=== PATIENT | female | born 1960 | race Caucasian/White ===

== ENCOUNTER 2017-05-22 07:15 | Inpatient (IN) | payer OTHER, MEDICAID ==
[2017-08-27] MEDS ORDERED: MIDAZOLAM 2 MG/2 ML VIAL IVP ONE (12:45)
--- NOTE | 2017-08-27 12:49 | PDANEPAE ---
ANE Past Medical History - Cardiovascular History Hx Hypertension: Yes Hx Arrhythmias: Yes Hx Chest Pain: No Hx Coronary Artery / Peripheral Vascular Disease: No Hx CHF / Valvular Disease: No Cardiovascular History Comment: PVC's. RBBB - Pulmonary History Hx COPD: No Hx Asthma/Reactive Airway Disease: Yes Hx Recent Upper Respiratory Infection: Yes Hx Oxygen in Use at Home: Yes Hx Sleep Apnea: Yes Sleep Apnea Screening Result - Last Documented: Positive Pulmonary History Comment: 2L TO CPAP AT NIGHT. SLEEP APNEA W/CPAP - Neurologic History Hx Cerebrovascular Accident: No Hx Seizures: No Hx Dementia: No - Endocrine History Hx Diabetes: Yes Hypothyroid: No Hyperthyroid: No Obesity: severe Endocrine History Comment: INSULIN & METFORMIN,ACTOS - Renal History Hx Renal Disorders: No - Liver History Hx Hepatic Disorders: No - Neurological & Psychiatric Hx Hx Neurological and Psychiatric Disorders: No Neurological / Psychiatric History Comment: ANXIETY, DEPRESSION, ESSENTIAL TREMOR, Bipolar - Cancer History Hx Cancer: No - Congenital Disorder History Hx Congenital Disorders: No - GI History GERD: no Hx Gastrointestinal Disorders: Yes Gastrointestinal History Comment: GASTRIC BYPASS, - Other Health History Other Health History: HYPERPARATHYROID. ECZEMA R FOOT/TOE. HEAT RASH GROIN, FOLDS UNDER BREASTS RECURRENT. BILAT MISSING TEETH UPPER. GOUT - Chronic Pain History Chronic Pain: Yes (BACK PAIN) - Surgical History Prior Surgeries: eye surg r. gastric bypass 2011. meningioma resection. hysterectomy. lumbar perineal shunt. femur repair ANE Review of Systems Review of Systems: - Exercise capacity METS (RN): 3 METS ANE Patient History - Allergies Allergies/Adverse Reactions: codeine Allergy (Verified 08/19/17 14:11) Rash hydrocodone Allergy (Verified 08/19/17 14:11) Rash - Home Medications Home Medications: Allopurinol [Allopurinol 300 MG (RX)] 300 mg PO DAILY 04/28/17 [Last Taken 08/27 05:00] Atorvastatin Calcium [Lipitor 20 mg (*)] 20 mg PO HS 04/28/17 [Last Taken 20:00] Carvedilol [Coreg (*)] 6.25 mg PO BIDMEAL 04/28/17 [Last Taken 08/27/17 05:00] Cyanocobalamin [Vitamin B12 1000MCG/ML (*)] 1,000 mcg IM Q30D 04/28/17 [Last Taken 08/17/17 10:00] FLUoxetine [Prozac 20 MG (*)] 60 mg PO DAILY 04/28/17 [Last Taken 08/27/17 05:00 ] Insulin Glargine [Lantus 100 UNITS/ML (*)] 52 unit SC BID 04/28/17 [Last Taken 08/26/17 20:00] Multivitamins [Multivitamin (*)] 1 each PO DAILY 04/28/17 [Last Taken 08/26/17 07:30] lamoTRIgine [LamICTAL 100 MG (*)] 200 mg PO DAILY 04/28/17 [Last Taken 08/27/17 05:00] metFORMIN HCL [Glucophage 1000 mg] 1,000 mg PO BIDMEAL 04/28/17 [Last Taken 07/04 05:00] risperiDONE [Risperdal 1mg (*)] 2 mg PO HS 04/28/17 [Last Taken 08/26/17 20:00] traZODone [traZODONE 100MG (*)] 200 mg PO HS 04/28/17 [Last Taken 08/26/17 20:00 ] Cholecalciferol Vit D3 [Vitamin D3 2000 units tab (OTC)] 5,000 units PO DAILY [Last Taken 08/26/17 07:30] Herbals/Supplements -Info Only 1 ea PO DAILY 08/20/17 [Last Taken 08/26/17 07:30 ] Pioglitazone HCl [Actos 15mg (*)] 15 mg PO DAILY 08/20/17 [Last Taken 08/26/17 07:30] Primidone [Primidone 250mg (*)] 250 mg PO DAILY 08/20/17 [Last Taken 08/27/17 05 :00] - Anes Hx Anes Hx: no prior problems - Smoking Hx Smoking Status: Former smoker - Alcohol Use Alcohol Use: Rarely - Family Anes Hx Family Anes Hx: neg - N/A Family Hx Anesthesia Complications: none ANE Labs/Vital Signs - Vital Signs Height: 157.48 cm Weight: 123.377 kg ANE Physical Exam - Airway Mallampati Score: Class 3 Mouth exam: poor dentition - Pulmonary Pulmonary: no respiratory distress, no rales or rhonchi, reduced air movement - Cardiovascular Cardiovascular: regular rate and rhythym, no murmur, rub, or gallop - ASA Status ASA Status: III ANE Anesthesia Plan Anesthesia Plan: GA w LMA Total IV Anesthesia: No
[2017-08-27] MEDS ORDERED: PROPOFOL 200 MG/20 ML VIAL ONE (13:02)
[2017-08-27] MEDS ORDERED: ALBUTEROL 3 ML DEYVIAL IH PRN (14:29)
[2017-08-27] MEDS ORDERED: LR 500 ML IV PRN (14:29)
[2017-08-27] MEDS ORDERED: ONDANSETRON 4 MG/2 ML VIAL IVP PRN (14:29)
[2017-08-27] MEDS ORDERED: NALOXONE HCL 0.4 MG/ML INJ IVP PRN (14:29)
[2017-08-27] MEDS ORDERED: ACETAMINOPHEN 500 MG TAB PO PRN (14:29)
--- NOTE | 2017-08-27 14:29 | POSTANESTH ---
Post Anesthetic Evaluation Cardiovascular Status: Normal, Stable Respiratory Status: Normal, Stable Level of Consciousness/Mental Status: Can Participate in Eval Pain Control: Adequate, Prn Tx Ordered Nausea/Vomiting Control: Adequate, Prn Tx Ordered Complications Possibly Related to Anesthesia: None Noted
[2017-09-04] MEDS ORDERED: CEFUROXIME 1,500 MG in NS 50 ML IV ONE (06:00)
[2017-09-04] MEDS ORDERED: LIDOCAINE 1% 2 ML INJ ID PRN (06:06)
[2017-09-04] MEDS ORDERED: LR 1,000 ML IV ONE (06:06)
[2017-09-04] MEDS ORDERED: BUPIVACAINE 0.25% 30 ML SDV ONE (06:45)
[2017-09-04] MEDS ORDERED: THROMBIN (BOVINE) 20,000 UNIT VIAL TP ONE (06:47)
[2017-09-04] MEDS ORDERED: GENTAMICIN SULFATE 80 MG/2 ML VIAL ONE (06:47)
--- NOTE | 2017-09-04 06:58 | PDHPUP ---
History & Physical Update H&P update statement: This history and physical update is based on an assessment of the patient which was completed after admission or registration (within 24 hours), but prior to the surgery/procedure. H&P update: H&P reviewed & patient examined, no change in patient's condition since H&P completed
[2017-09-04] MEDS ORDERED: fentaNYL 100 MCG/2 ML INJ ONE (07:02)
[2017-09-04] MEDS ORDERED: PROPOFOL/EMULSION 500 MG/50 ML BOTTLE IV ONE (07:03)
[2017-09-04] MEDS ORDERED: DEXMEDETOMIDINE/NS 4MCG/ML 50 ML BTL IV ONE (07:03)
[2017-09-04] MEDS ORDERED: CHLORHEXIDINE GLUC HIBICLENS 118 ML BTL TP ONE (07:45)
--- NOTE | 2017-09-04 08:38 | PDANEPAE ---
ANE History of Present Illness 57 year old woman for cranial deep brain stimulation. History of sleep apnea, obesity, htn, DM, tremor. ANE Past Medical History - Cardiovascular History Hx Hypertension: Yes Hx Arrhythmias: Yes Hx Chest Pain: No Hx Coronary Artery / Peripheral Vascular Disease: No Hx CHF / Valvular Disease: No Cardiovascular History Comment: PVC's. RBBB - Pulmonary History Hx COPD: No Hx Asthma/Reactive Airway Disease: Yes Hx Recent Upper Respiratory Infection: Yes Hx Oxygen in Use at Home: Yes Hx Sleep Apnea: Yes Sleep Apnea Screening Result - Last Documented: Positive Pulmonary History Comment: 2L TO CPAP AT NIGHT. SLEEP APNEA W/CPAP - Neurologic History Hx Cerebrovascular Accident: No Hx Seizures: No Hx Dementia: No - Endocrine History Hx Diabetes: Yes Hypothyroid: No Hyperthyroid: No Obesity: severe Endocrine History Comment: INSULIN & METFORMIN,ACTOS - Renal History Hx Renal Disorders: No - Liver History Hx Hepatic Disorders: No - Neurological & Psychiatric Hx Hx Neurological and Psychiatric Disorders: No Neurological / Psychiatric History Comment: ANXIETY, DEPRESSION, ESSENTIAL TREMOR, Bipolar - Cancer History Hx Cancer: No - Congenital Disorder History Hx Congenital Disorders: No - GI History GERD: no Hx Gastrointestinal Disorders: Yes Gastrointestinal History Comment: GASTRIC BYPASS, - Other Health History Other Health History: HYPERPARATHYROID. ECZEMA R FOOT/TOE. HEAT RASH GROIN, FOLDS UNDER BREASTS RECURRENT. BILAT MISSING TEETH UPPER. GOUT - Chronic Pain History Chronic Pain: Yes (BACK PAIN) - Surgical History Prior Surgeries: eye surg r. gastric bypass 2011. meningioma resection. hysterectomy. lumbar perineal shunt. femur repair ANE Review of Systems Review of Systems: - Exercise capacity METS (RN): 3 METS ANE Patient History - Allergies Allergies/Adverse Reactions: codeine Allergy (Verified 08/19/17 14:11) Rash hydrocodone Allergy (Verified 08/19/17 14:11) Rash - Home Medications Home Medications: Allopurinol [Allopurinol 300 MG (RX)] 300 mg PO DAILY 04/28/17 [Last Taken 09/03] Atorvastatin Calcium [Lipitor 20 mg (*)] 20 mg PO HS 04/28/17 [Last Taken ] Carvedilol [Coreg (*)] 6.25 mg PO BIDMEAL 04/28/17 [Last Taken 09/03/17] Cyanocobalamin [Vitamin B12 1000MCG/ML (*)] 1,000 mcg IM Q30D 04/28/17 [Last Taken 08/17/17 10:00] FLUoxetine [Prozac 20 MG (*)] 60 mg PO DAILY 04/28/17 [Last Taken 09/03/17] Insulin Glargine [Lantus 100 UNITS/ML (*)] 52 unit SC BID 04/28/17 [Last Taken 09/03/17 1/2 dose] Multivitamins [Multivitamin (*)] 1 each PO DAILY 04/28/17 [Last Taken 08/28/17] lamoTRIgine [LamICTAL 100 MG (*)] 200 mg PO DAILY 04/28/17 [Last Taken 09/03/17] metFORMIN HCL [Glucophage 1000 mg] 1,000 mg PO BIDMEAL 04/28/17 [Last Taken ] risperiDONE [Risperdal 1mg (*)] 2 mg PO HS 04/28/17 [Last Taken 09/03/17] traZODone [traZODONE 100MG (*)] 200 mg PO HS 04/28/17 [Last Taken 09/03/17] Cholecalciferol Vit D3 [Vitamin D3 2000 units tab (OTC)] 5,000 units PO DAILY [Last Taken 08/28/17] Herbals/Supplements -Info Only 1 ea PO DAILY 08/20/17 [Last Taken 08/28/17] Pioglitazone HCl [Actos 15mg (*)] 15 mg PO DAILY 08/20/17 [Last Taken 09/03/17] Primidone [Primidone 250mg (*)] 250 mg PO DAILY 08/20/17 [Last Taken 08/31/17] - NPO status NPO Since - Liquids (Date): 09/03/17 NPO Since - Liquids (Time): 02:00 NPO Since - Solids (Date): 09/03/17 NPO Since - Solids (Time): 20:00 - Smoking Hx Smoking Status: Former smoker - Alcohol Use Alcohol Use: Rarely - Family Anes Hx Family Hx Anesthesia Complications: none ANE Labs/Vital Signs - Vital Signs Blood Pressure: 168/93 Heart Rate: 80 Respiratory Rate: 16 O2 Sat (%): 91 Height: 157.48 cm Weight: 123.377 kg ANE Physical Exam - Airway Neck exam: FROM Mallampati Score: Class 3 Mouth exam: normal dental/mouth exam - Pulmonary Pulmonary: no respiratory distress - Cardiovascular Cardiovascular: regular rate and rhythym - ASA Status ASA Status: III ANE Anesthesia Plan Anesthesia Plan: MAC Lines/Monitors: arterial line Total IV Anesthesia: Yes
[2017-09-04] MEDS ORDERED: fentaNYL 100 MCG/2 ML INJ IVP PRN (08:41)
[2017-09-04] MEDS ORDERED: ALBUTEROL 3 ML DEYVIAL IH PRN (08:41)
[2017-09-04] MEDS ORDERED: LABETALOL HCL 5 MG/ML 20 ML MDV IVP PRN (08:41)
[2017-09-04] MEDS ORDERED: ONDANSETRON 4 MG/2 ML VIAL IVP PRN ×2 (08:41→11:13)
[2017-09-04] MEDS ORDERED: NS 500 ML IV PRN (08:41)
[2017-09-04] MEDS ORDERED: ACETAMINOPHEN 500 MG TAB PO PRN (08:41)
[2017-09-04] MEDS ORDERED: NALOXONE HCL 0.4 MG/ML INJ IVP PRN (08:41)
[2017-09-04] MEDS ORDERED: POLYETHYLENE GLYCOL 3350 17 GM PKT PO PRN (11:13)
[2017-09-04] MEDS ORDERED: LACTULOSE 20 GM/30 ML UDCUP PO PRN (11:13)
[2017-09-04] MEDS ORDERED: MAGNESIUM HYDROXIDE 30 ML UDCUP PO PRN (11:13)
[2017-09-04] MEDS ORDERED: BISACODYL 10 MG SUPP PR PRN (11:13)
[2017-09-04] MEDS ORDERED: NS W/ 20 KCl/L 1,000 ML IV SCH (11:15)
[2017-09-04] MEDS ORDERED: traMADol 50 MG TAB PO PRN (11:15)
--- NOTE | 2017-09-04 11:18 | POSTOPPROG ---
Post Op Note Date of Operation: 09/04/17 Surgeon: Elli Vogt Sash Installer: Francisca Palacios PA-C Anesthesiologist: Dr. Clark Anesthesia: IV Sedation Pre-op Diagnosis: Essential tremor Post-op Diagnosis: Essential tremor Procedure: Left VIM DBS lead placement Inf/Abcess present in the surg proc area at time of surgery?: No Depth: Superfical (Skin SQ) EBL: Minimal Plan Plan: 57 yo female s/p left VIM DBS lead placement for essential tremor - neuro checks - pain control - advance diet as tolerated - postop head CT pending - maintain SBP < 140 - dispo: home tomorrow Exam Awake. Alert. PERRL Facial expression symmetrical Moving all ext Strength full Incision c/d/i
--- NOTE | 2017-09-04 11:26 | GOP ---
[f rep st] OPERATIVE REPORT DATE OF OPERATION: 09/04/2017 SURGEON: Elli Vogt DO HEAD [employer] COACH: None. ANNE-MARIE will be dictated by Marcella Gambino PA-C. Please refer to her dictation for the ANNE-MARIE. PREOPERATIVE DIAGNOSIS: 1. Essential tremor. 2. Diabetes. 3. Obesity. POSTOPERATIVE DIAGNOSIS: 1. Essential tremor. 2. Diabetes. 3. Obesity. PROCEDURE PERFORMED: 1. Left deep brain stimulator lead placement to the VIM nucleus of the thalamus. 2. Stealth. 3. Impedances. FINDINGS: SPECIMENS: None. ESTIMATED BLOOD LOSS: 20 mL. INDICATIONS: This is a 57-year-old female with essential tremor who was found to be a good candidate by a multidisciplinary team evaluation to be a candidate for DBS. She was identified, consented, sit es were marked, brought to the operating room, anesthetized with MAC, hair was clipped with the OR cl ippers, the skin was cleansed with ChloraPrep, pin sites were anesthetized with 0.5% Marcaine with ep inephrine using povidone and iodine. The [place] frame was placed a stereotactic fashion and a local izer CT was performed with the O-arm and the localizing box. It was to the plan in the Stealt h frame linked S8 software. Her ACPC distance was 26.4, her target was an X of -11.73, a Y of -6.74, a Z of -0.19. Her entry point was an X of -41.61, A Y of 37.69, a Z of 68.59. This corresponded to 2 3.5 degrees off midsagittal, 57.1 degrees off midaxial. This corresponded to Le[place]ell frame coordinate s of X of 108.5, Y of 102, Z of 111, ring of 69 degrees, arc 111.7 degrees. She was prepped and drap ed in the usual sterile fashion. These were all set and triple checked by all providers in the room. Incision was marked using the cannula and the frame coordinates and half-elmore incision was anesthet ized with 0.5% Marcaine with epinephrine. An incision was made with a 10 blade. Hemostasis was obta ined with bipolar cautery. We used a periosteal elevator to elevate the periosteum and Adriana clips we re placed. The bone incision was marked and a air force pilot hole was performed. 14 mm [place] bur hole was pe rformed and the bone edges were waxed. We verified it was in appropriate position, placed the [place] [place] clipping mechanism and device locked into place with 5 mm Synthes screws. Verified the clip ping mechanism clipped and locked. Opened the dura sharply with an 11 blade. Coagulated the dura. Maria rich the cannula and stylet. Placed Gelfoam and DuraSeal. Placed the microelectrode. Performed microe lectrode recording. Had an excellent run. Did not find any light touch. Found deep touch and had a pproximately 9 mm macro stim to the middle and had some paresthesias with low voltages so elected to try an anterior run. We drove back up to target, removed the Gel-Foam and DuraSeal, placed and the c annula and stylet, placed a microelectrode and then performed an anterior run. We did not get good t halamic recordings in this area and elected to place and test the lead at the center tract as there w ere no other movement options position mesa. We elected to leave the bottom of the bottom contact at 1.5 below where we got out of the thalamus again. Please refer to the ANNE-MARIE dictation by Francisca young. We measured and placed the lead, placing the internal stylet in the anterior cannula. We then t ested each contact for impedances and for efficacy. She had a significant lesional effect so we were unable to test her tremor, however, from a [id number] profile, it was a very programmable lead. To ok an x-ray with the bomb sites, retracted the cannulas, placed the locking mechanism, clipped and lo cked the mechanism, brought the stylet out, performed a stereotactic spin which was merged in the Piter alth frame linked software. The lead was then placed into the groove, locked into place with the cap . An x-ray was taken after placing the lead extension, locking into place with the torque wrench and placing lead posterior. There had been no significant migration. Copiously irrigated with over a liter of gentamicin infused saline. Closed the galea with 2-0 Vicryl pop-offs. The skin was closed with 3-0 running nylon. The wound was dressed with Xeroform and Telfa stapled down. The fram e was removed and then a head wrap was placed. Patient tolerated the procedure well. No complication s. This DESCRIPTION OF PROCEDURE: FLUIDS: 1200 mL of crystalloid. Urine. OUTPUT: See anesthesia record. DRAINS: None. COMPLICATIONS: None. /[id number]/MODL
[2017-09-04] MEDS ORDERED: LABETALOL HCL 5 MG/ML 20 ML MDV ONE (12:29)
[2017-09-04] MEDS: metFORMIN HCL 500 MG TAB PO SCH ×2 (14:53→20:23)
[2017-09-04] MEDS: CEFUROXIME 1,500 MG in STERILE WATER INJ 17 ML IV SCH ×2 (14:53→22:00)
[2017-09-04] MEDS: hydrALAZINE 20 MG/ML VIAL IVP PRN (16:36)
--- NOTE | 2017-09-04 19:52 | GPN ---
[f rep st] PROCEDURE NOTE DATE OF PROCEDURE: 09/04/2017 PREPROCEDURE DIAGNOSIS: Essential tremor. POSTPROCEDURE DIAGNOSIS: Essential tremor. PROCEDURE PERFORMED: Intraoperative functional subcortical mapping by microelectrode recording and s timulation. COMPLICATIONS: None. INDICATIONS FOR PROCEDURE: Determination of optimal electrode lead placement for deep brain stimulat ion therapy for essential tremor to the VIM. DESCRIPTION OF PROCEDURE: Following the incision on the left, a lisa hole was drilled. The arc was then arranged with the following coordinates: X 108.5, Y 102, V 111, ring 69 and arc 111.7. The rec ording microelectrode was then slowly advanced into the brain using a central tract. Cell bursts wer e found above target at 11. There was evidence of entering VIM at 7.5 above target as well as change in stimulation with elbow extension at 7.5 and shoulder passive range of motion at 6.7 above target. There was evidence of deep touch in the leg at 4.5 above target and deep touch to the arm at 3.78 a taurus target. There was a tremor cell noted at 3.1 above target. We exited VIM at 1.5 below target. With these recordings, we then proceeded with macro stimulation. Patient had transient hand tingling up to 2.0 with constant at 2.5. Due to the tingling that patient had with stimulation with macro st imulation, we proceeded with an anterior tract with microelectrode recording. There were cell bursts at various points above target. However, there was no evidence of entering VIM and any change in st imulation with passive range of motion or deep touch. We therefore elected to place the lead at the central tract with the bottom of the lead at 1.5 below target. We proceeded with test stimulation. At 1 negative 4 positive impedance 1993 the patient had transien t tingling up to 1.75 current with improvement in her tremor. At 2 negative 4 positive impedance 174 3 the patient had transient tingling up to 2.0 with improvement in tremor. At 2A negative 4 positive and impedance 2741 the patient had transient tingling at 1.75 current. At 3 negative 4 positive imp edance 1544 patient had no side effects up to 2.0 current. At 3 positive 4 negative impedance 1541 p atient had no side effects up to 2.5 current. We elected to leave the lead at this location with the bottom of the lead at 1.5 below target due to the recordings we obtained as well as the test stimula tion. The patient tolerated the surgery well without complication and was transferred to recovery. /[id number]/MODL
[2017-09-04] MEDS: INSULIN GLARGINE 100 UNITS/ML UNIT SC SCH (20:17)
[2017-09-04] MEDS: SENNOSIDES/DOCUSATE SODIUM TAB PO SCH (20:19)
[2017-09-04] MEDS: ACETAMINOPHEN 325 MG TAB PO PRN (20:20)
[2017-09-04] MEDS: CARVEDILOL 6.25 MG TAB PO SCH (20:20)
[2017-09-04] MEDS ORDERED: traZODone 100 MG TAB PO SCH (21:00)
[2017-09-04] MEDS ORDERED: risperiDONE 1 MG TAB PO SCH (21:00)
[2017-09-04] MEDS ORDERED: ATORVASTATIN CALCIUM 20 MG TAB PO SCH (21:00)
[2017-09-05 04:36] VITALS: O2SAT 95
[2017-09-05] MEDS: ACETAMINOPHEN 325 MG TAB PO PRN (04:37)
[2017-09-05] MEDS: hydrALAZINE 20 MG/ML VIAL IVP PRN (04:37)
[2017-09-05 07:17] VITALS: PULSE 83; RESP 16; TEMP 97.8
[2017-09-05 07:25] VITALS: BP 135/70
[2017-09-05] MEDS: CARVEDILOL 6.25 MG TAB PO SCH (07:56)
[2017-09-05] MEDS: metFORMIN HCL 500 MG TAB PO SCH (07:56)
[2017-09-05] MEDS ORDERED: ALLOPURINOL 300 MG TAB PO SCH (09:00)
[2017-09-05] MEDS ORDERED: lamoTRIgine 100 MG TAB PO SCH (09:00)
[2017-09-05] MEDS ORDERED: MULTIVITAMINS 1 EACH TAB PO SCH (09:00)
[2017-09-05] MEDS ORDERED: PRIMIDONE 250 MG TAB PO SCH (09:00)
[2017-09-05] MEDS ORDERED: FLUoxetine 20 MG CAP PO SCH (09:00)
[2017-09-05] MEDS ORDERED: PIOGLITAZONE HCL 15 MG TAB PO SCH (09:00)
[2017-09-05] MEDS: INSULIN GLARGINE 100 UNITS/ML UNIT SC SCH (09:20)
--- NOTE | 2017-09-05 10:52 | NEUSURGPN ---
Assessment/Plan: 7 yo female s/p left VIM DBS lead placement for essential tremor - neuro checks- stable and doing well - pain control -Some nausea but controlled this am - eating well, voiding well -Remove head wrap prior to going home - postop head CT shows placement of leads, otherwise no acute bleeding or other acute changes - maintain SBP < 140-will continue home BP meds - dispo: home today Exam Awake. Alert. PERRL Facial expression symmetrical Moving all ext Strength full Incision c/d/i Subjective: Doing well, had some nausea but is improved now. Eager to go home. - Physician Discussed Patient with : Sin Neurosurgery Physical Exam - Vitals, I&O, Labs I and O 09/04/17 09/05/17 09/06/17 05:59 05:59 05:59 Intake Total 1200 270 Output Total 550 Balance 650 270 Weight 123.377 kg Intake: Oral (ml) 270 IV Intake (ml) 1200 Output: Urine (ml) 550 Catheter 200 Toilet 350 Estimated Blood Loss (ml) 0 Other: Intake Quantity Yes Sufficient Number of Voids Toilet 1 1 Bladder Scan Volume (ml) Toilet 500 Vital Signs Temp Pulse Resp BP Pulse Ox 36.6 C 83 16 135/70 H 95 09/05/17 07:13 09/05/17 07:56 09/05/17 07:13 09/05/17 07:56 09/05/17 07:13 ICD10 Worksheet Patient Problems: Problems Problem Status Onset Essential tremor Acute - ICD10 Problem Qualifiers (1) Essential tremor
[2017-09-05] MEDS: SENNOSIDES/DOCUSATE SODIUM TAB PO SCH (11:00)
--- NOTE | 2017-09-05 11:42 | ASDISCHSUM ---
Discharge Information Plan Status:Home with No Needs Medically Cleared to Leave:09/04/2017 Discharge Date:09/05/2017 11:21 AM CM D/C Disposition:Home, Routine, Self-Care ADT D/C Disposition:Home, Routine, Self-Care Projected Discharge Date:09/05/2017 11:21 AM Transportation at D/C:None or Unknown Discharge Delay Reason: Follow-Up Date:09/05/2017 11:21 AM Discharge Slot:1 - 8:01 am - 12:00 noon Final Diagnosis:Essential Tremor, s/p deep brain stimulation lead placement Placement Information Patient Contact Information Contact Name:BHAVESH Relationship:Sister Address: Work Phone: City: [facility] Phone: [facility] Code: Email: Financial Information Financial Class:HMO and PPO Plans Primary Plan Desc:[employer] Primary Plan Number:[id number] Secondary Plan Desc:[employer] [place] Secondary Plan Number:[id number] Assessment Information [facility] CM Progress Note CM Note CM Note Notes: Pt admitted w/ an essential tremor. Per notes, s/p deep brain stimulation lead placement. Pt is a , she lives alone in [place]; her sister is listed as her Emergency Contact. Pt to discharge home independently w/ no identified needs. No IM/CHONG indicated, not applicable. Pt to follow up as directed. CM avail for any further issues or concerns. Discharge Plan: Home independently Date Signed: 09/05/2017 11:42 AM Electronically Signed By:Martha Benitez RN Intervention Information
== END 2017-09-05 11:21 | disposition home or self-care (01) | DRG 27 ==
LOC: F3N 09-04 05:42
PROVIDERS: ADMIT Neurological Surgery; ATTEND Neurological Surgery
PROC: 00H00MZ Insertion of Neurostimulator Lead into Brain, Open Approach (ICD-10-PCS; principal; 2017-09-04 07:15)
PROC: 00K00ZZ Map Brain, Open Approach (ICD-10-PCS; principal; 2017-09-04 07:15)
DX: G25.0 Essential tremor (principal); I10 Essential (primary) hypertension; E11.9 Type 2 diabetes mellitus without complications; G47.30 Sleep apnea, unspecified; E66.9 Obesity, unspecified; Z79.84 Long term (current) use of oral hypoglycemic drugs; F41.8 Other specified anxiety disorders; E03.9 Hypothyroidism, unspecified; Z98.84 Bariatric surgery status; Z87.891 Personal history of nicotine dependence
CPT/HCPCS: C1713; C1778; J0171; J0360; J0697; J1815; J2405; J2704; J3010; J3490

== ENCOUNTER 2017-08-27 10:53 | Outpatient (CLI) | payer OTHER, MEDICAID ==
[2017-08-27] MEDS ORDERED: ROCURONIUM 100 MG/10 ML VIAL ONE (11:32)
[2017-08-27] MEDS ORDERED: SUCCINYLCHOLINE CHLORIDE 200 MG/10 ML VIAL ONE (11:32)
[2017-08-27] MEDS ORDERED: GADOBUTROL 10 ML VIAL IVP ONE (11:34)
[2017-08-27 12:05] VITALS: PULSE 82
[2017-08-27] MEDS ORDERED: MIDAZOLAM 2 MG/2 ML VIAL ONE (12:53)
[2017-08-27] MEDS ORDERED: fentaNYL 100 MCG/2 ML INJ ONE (13:07)
[2017-08-27 15:02] VITALS: TEMP 97.3
[2017-08-27 15:18] VITALS: RESP 13
[2017-08-27] MEDS ORDERED: LIDOCAINE 2% 2 ML INJ ONE (15:30)
[2017-08-27] MEDS ORDERED: ONDANSETRON 4 MG/2 ML VIAL ONE (15:30)
[2017-08-27 15:44] VITALS: BP 130/80; O2SAT 87
[2017-08-27] MEDS ORDERED: ACETAMINOPHEN 500 MG TAB PO PRN (16:01)
[2017-08-27] MEDS ORDERED: ONDANSETRON 4 MG/2 ML VIAL IVP PRN (16:01)
[2017-08-27] MEDS ORDERED: NALOXONE HCL 0.4 MG/ML INJ IVP PRN (16:01)
[2017-08-27] MEDS ORDERED: LR 500 ML IV PRN (16:01)
[2017-08-27] MEDS ORDERED: PROMETHAZINE HCL 25 MG/ML INJ IVP PRN (16:01)
== END 2017-08-27 15:50 | disposition home or self-care (01) ==
LOC: FIMAGING 10:53
PROVIDERS: ATTEND Physician Assistant Surgical
DX: Z01.812 Encounter for preprocedural laboratory examination (principal); J32.2 Chronic ethmoidal sinusitis; J32.1 Chronic frontal sinusitis; G93.89 Other specified disorders of brain; G25.0 Essential tremor
CPT/HCPCS: A9585; J0330; J2250; J2405; J3010

== ENCOUNTER 2017-10-02 05:32 | Inpatient (IN) | payer OTHER, MEDICAID ==
[2017-10-02] MEDS ORDERED: CEFUROXIME 1,500 MG in STERILE WATER INJ 17 ML IV ONE (06:00)
[2017-10-02] MEDS ORDERED: LR 1,000 ML IV ONE (06:43)
[2017-10-02] MEDS ORDERED: CHLORHEXIDINE GLUC HIBICLENS 118 ML BTL TP ONE (06:46)
[2017-10-02] MEDS ORDERED: POVIDONE-IODINE 30 GM OINTTUBE TP ONE (06:46)
[2017-10-02] MEDS ORDERED: BUPIVACAINE 0.25% 30 ML SDV ONE (06:46)
[2017-10-02] MEDS ORDERED: THROMBIN (BOVINE) 20,000 UNIT VIAL TP ONE (06:46)
[2017-10-02] MEDS ORDERED: GENTAMICIN SULFATE 80 MG/2 ML VIAL ONE (06:47)
[2017-10-02 06:59] LABS: PLATELET COUNT 226 10^3/uL (150-400)
--- NOTE | 2017-10-02 06:59 | PDANEPAE ---
ANE Past Medical History - Cardiovascular History Hx Hypertension: Yes Hx Arrhythmias: Yes Hx Chest Pain: No Hx Coronary Artery / Peripheral Vascular Disease: No Hx CHF / Valvular Disease: No Hx Palpitations: No Cardiovascular History Comment: PVC's. RBBB. high chol - Pulmonary History Hx COPD: No Hx Asthma/Reactive Airway Disease: Yes Hx Recent Upper Respiratory Infection: Yes Hx Oxygen in Use at Home: Yes O2 in Use at Home (L/minute): o2 w/cpap Hx Sleep Apnea: Yes Sleep Apnea Screening Result - Last Documented: Positive Pulmonary History Comment: 2L TO CPAP AT NIGHT. SLEEP APNEA W/CPAP - Neurologic History Hx Cerebrovascular Accident: No Hx Seizures: No Hx Dementia: No Neurologic History Comment: essential tremor - Endocrine History Hx Diabetes: Yes Hypothyroid: No Hyperthyroid: No Obesity: yes, severe Endocrine History Comment: type 2. hyperparathyroid - Renal History Hx Renal Disorders: No - Liver History Hx Hepatic Disorders: No - Neurological & Psychiatric Hx Hx Neurological and Psychiatric Disorders: No Neurological / Psychiatric History Comment: ANXIETY. DEPRESSION. Bipolar - Cancer History Hx Cancer: No - Congenital Disorder History Hx Congenital Disorders: No - GI History GERD: no Hx Gastrointestinal Disorders: Yes Gastrointestinal History Comment: GASTRIC BYPASS - Other Health History Other Health History: wears glasses. ECZEMA R FOOT/TOE. HEAT RASH GROIN, FOLDS UNDER BREASTS RECURRENT. BILAT. MISSING TEETH UPPER. GOUT - Chronic Pain History Chronic Pain: Yes (BACK PAIN) - Surgical History Prior Surgeries: 10/02/17 DBS stg 2 with Vogt. 09/04/17 DBS stg 1 with Vogt. 08/28/17 MRI with anesthesia eye surg r. gastric bypass 2011. meningioma resection. hysterectomy. lumbar perineal shunt. femur repair ANE Review of Systems Review of Systems: - Exercise capacity METS (RN): 2 METS - Systems Neurological: Reports: tremors ANE Patient History - Allergies Allergies/Adverse Reactions: codeine Allergy (Verified 10/02/17 06:20) Rash hydrocodone Allergy (Verified 10/02/17 06:20) Rash - Home Medications Home Medications: Allopurinol [Allopurinol 300 MG (RX)] DAILY 04/28/17 [Last Taken 10/01/17 07:00] Atorvastatin Calcium [Lipitor 20 mg (*)] HS 04/28/17 [Last Taken 10/01/17 20:00] Carvedilol [Coreg (*)] BIDMEAL 04/28/17 [Last Taken 10/01/17 20:00] FLUoxetine [Prozac 20 MG (*)] DAILY 04/28/17 [Last Taken 10/01/17 07:00] Insulin Glargine [Lantus 100 UNITS/ML (*)] 52 unit SC BID 04/28/17 [Last Taken 10/01/17 20:00] Multivitamins [Multivitamin (*)] DAILY 04/28/17 [Last Taken 09/25/17] lamoTRIgine [LamICTAL 100 MG (*)] DAILY 04/28/17 [Last Taken 10/01/17 07:00] metFORMIN HCL [Glucophage 1000 mg] BIDMEAL 04/28/17 [Last Taken 10/01/17 07:00] risperiDONE [Risperdal 1mg (*)] HS 04/28/17 [Last Taken 10/01/17 20:00] Cholecalciferol Vit D3 [Vitamin D3 2000 units tab (OTC)] DAILY 08/20/17 [Last Taken 09/25/17] Herbals/Supplements -Info Only DAILY 08/20/17 [Last Taken 09/25/17] Pioglitazone HCl [Actos 15mg (*)] DAILY 08/20/17 [Last Taken 10/01/17 07:00] Primidone [Primidone 250mg (*)] DAILY 08/20/17 [Last Taken 09/27/17] traZODone [traZODONE 100MG (*)] 200 mg PO HS 10/01/17 [Last Taken 10/01/17 20:00 ] - NPO status NPO Since - Liquids (Date): 10/01/17 NPO Since - Liquids (Time): 23:59 NPO Since - Solids (Date): 10/01/17 NPO Since - Solids (Time): 23:00 - Smoking Hx Smoking Status: Former smoker - Family Anes Hx Family Hx Anesthesia Complications: none ANE Labs/Vital Signs - Labs Result Diagrams: 10/02/17 06:35 10/02/17 06:35 - Vital Signs Blood Pressure: 152/77 Heart Rate: 81 Respiratory Rate: 16 O2 Sat (%): 92 Height: 157.48 cm Weight: 127.006 kg ANE Physical Exam - Airway Neck exam: decreased ROM Mallampati Score: Class 3 Mouth exam: normal dental/mouth exam - Pulmonary Pulmonary: no respiratory distress, reduced air movement - Cardiovascular Cardiovascular: regular rate and rhythym, no murmur, rub, or gallop - ASA Status ASA Status: III ANE Anesthesia Plan Anesthesia Plan: MAC Total IV Anesthesia: Yes
[2017-10-02] MEDS ORDERED: DEXMEDETOMIDINE/NS 4MCG/ML 50 ML BTL IV ONE (07:12)
[2017-10-02] MEDS ORDERED: fentaNYL 100 MCG/2 ML INJ ONE ×2 (07:13→09:03)
[2017-10-02] MEDS ORDERED: PROPOFOL 200 MG/20 ML VIAL ONE ×2 (07:13→09:02)
[2017-10-02] MEDS ORDERED: DEXAMETHASONE 4 MG/ML VIAL ONE (07:14)
[2017-10-02] MEDS ORDERED: ONDANSETRON 4 MG/2 ML VIAL ONE (07:14)
[2017-10-02] MEDS ORDERED: LIDOCAINE 2% 5 ML SDV ONE (07:22)
[2017-10-02] MEDS ORDERED: HYDROCODONE/APAP 5/325 TAB PO PRN (09:00)
[2017-10-02] MEDS ORDERED: ACETAMINOPHEN 500 MG TAB PO PRN (09:00)
[2017-10-02] MEDS ORDERED: NALOXONE HCL 0.4 MG/ML INJ IVP PRN (09:00)
[2017-10-02] MEDS ORDERED: fentaNYL 100 MCG/2 ML INJ IVP PRN (09:00)
[2017-10-02] MEDS ORDERED: ALBUTEROL 3 ML DEYVIAL IH PRN (09:00)
[2017-10-02] MEDS ORDERED: OXYCODONE/APAP 5/325 TAB PO PRN (09:00)
[2017-10-02] MEDS ORDERED: epHEDrine SULFATE 10 MG/ML SYR IVP PRN (09:00)
[2017-10-02] MEDS ORDERED: ONDANSETRON 4 MG/2 ML VIAL IVP PRN ×2 (09:00→10:48)
[2017-10-02] MEDS ORDERED: LR 500 ML IV PRN (09:00)
[2017-10-02] MEDS ORDERED: PHENYLEPHRINE HCL 100 MCG/ML SYR IVP PRN (09:00)
[2017-10-02] MEDS ORDERED: ACETAMINOPHEN 325 MG TAB PO PRN (10:48)
[2017-10-02] MEDS ORDERED: ONDANSETRON DISINTEGRATING 4 MG TAB PO PRN (10:48)
--- NOTE | 2017-10-02 10:53 | POSTOPPROG ---
Post Op Note Date of Operation: 10/02/17 Surgeon: Elli Vogt Furniture Cleaner: Francisca Palacios PA-C Anesthesia: IV Sedation, Local (Specify) Pre-op Diagnosis: Essential tremor Post-op Diagnosis: Essential tremor Procedure: Right DBS lead placement Inf/Abcess present in the surg proc area at time of surgery?: No Depth: Deep Incisional (Fascial) EBL: Minimal Plan Plan: 57 yo female s/p right DBS lead placement for essential tremor - neuro checks - postop head CT pending - maintain SBP < 140 - PT - pain control - dispo: home tomorrow Exam Awake. Alert. PERRL Facial expression symmetrical Muscle strength full at 5/5 Sensation intact
[2017-10-02] MEDS ORDERED: NS 1,000 ML IV SCH (11:00)
--- NOTE | 2017-10-02 11:22 | GOP ---
[f rep st] OPERATIVE REPORT DATE OF OPERATION: 10/02/2017 SURGEON: Elli Vogt DO NEUROSURGEON: Elli Vogt DO. HULL INSPECTOR: None. PREOPERATIVE DIAGNOSIS: Essential tremor. POSTOPERATIVE DIAGNOSIS: Essential tremor. PROCEDURE PERFORMED: 1. Placement of right deep brain stimulator lead to the ventral intermediate nucleus of the thalamus . 2. Stealth stereotaxis. ANNE-MARIE by Francisca Palacios. Please refer to her dictation for all ANNE-MARIE. FINDINGS: SPECIMENS: None. ESTIMATED BLOOD LOSS: 25 mL. INDICATIONS: This is a 57-year-old female, with essential tremor and an indwelling left-sided lead t o the VIM, who comes back for her right-sided lead placement. DESCRIPTION OF PROCEDURE: She was identified, consented. Sites were marked. Brought to the operati ng room, anesthetized under local. Hair was clipped with the OR clippers. Skin was prepped with Chl oraPrep, and the frame sites were anesthetized with 0.5% Marcaine with epinephrine. Using povidone i odine ointment on the tips of the pins, the pins of the [place] frame were placed stereotactically, p reventing all pitch, yaw, and left-right deviation. We then performed a stereotactic spin with the O -arm and the Stealth localizer and merged it to the preoperative plan in the Stealth frame-linked [facility]. The AC-PC distance was 26.11. The target was X of 11.33, a Y of -6.52 and a Z of 0.11. The entry point was an X of 36.82, a Y of 35.60, a Z of 70.37. This corresponded 19.9 degrees off midsag ittal, 59.1 degrees off midaxial. This corresponded to [place] frame coordinates of an X of 86, Y of 92, Z of 118, ring of 74 degrees, arc of 67.9 degrees. We elected to do a center and an anterior tr act, as her anterior tract on the opposite side was the most active and usable tract. She was prepped and draped in the usual sterile fashion. All [place] frame coordinates were set and triple-checked by all providers in the room. The incision site was marked using the [place] frame co ordinates, and a half-elmore incision was anesthetized with 0.5% Marcaine with epinephrine. Incision w as made with a 10 blade. Periosteum was elevated with a periosteal elevator. Hemostasis was obtaine d with Adriana clips and bipolar. We then marked the bone incision using the preoperative Stealth ster eotactic plan, performed a corporate auditor hole, then performed a 14 mm bur hole. All bone edges were waxed, a nd we verified the bur holes in the appropriate position. We placed the locking mechanism for the Ab antonina [facility] system and locked into place with 5 mm Synthes screws. Verified the clipping mechanism clipped and locked. Opened the dura sharply with an 11 blade. Meticulous hemostasis was obtained w ith bipolar cautery. We then gently inserted the cannula and stylet for the center and anterior trac t, locked into place. Placed Gelfoam and DuraSeal, and then removed the internal cannula, placed the microelectrodes, connected them, checked impedances. All impedances were good. We performed microe lectrode recording. The anterior tract was the better tract. Please refer to all microelectrode rec ording dictation by Francisca Palacios. We got in at approximately 9.8 above and out at approximately 1 mm below, with good motor driving and good deep tactile, and we macrostemmed and elected to place the lead in the anterior tract. So, wit h the bottom of the bottom contact at 1 below target, where we got out of the VIM, we drove to this a vianey. We placed internal stylet in the center tract. We removed the microelectrode, measured and lucille rich the lead in the appropriate configuration. This is, again, an [place] [facility] lead. We placed t he lead, tested the lead at all contacts. We had some transient paresthesias at low voltages in the bottom contacts. We backed the lead up approximately 1 mm to have the bottom of the bottom at target . We retested, and we had excellent programability and low side effects at all of the top 3 contacts in bipolar mode, and without any directionality. We elected to leave the lead here. X-ray was take n of the bottom sites. We then performed a Stealth stereotactic spin and merged it. The lead appeared, on the Stealth stere otactic spin, to be approximately 1 mm more medial than the original plan; again, in a good position. We then retracted the cannula, placed the locking clip, verified that it clipped and locked, remove d the lead inferiorly with bayonets from the cannula, removed the stylet, placed it into the groove, placed a cap on, and locked the cap in place. Took an x-ray; it had not migrated. We then placed th e extension cap over the lead and locked into place with the torque wrench. Then placed the extensio n cap posteriorly and coiled the lead posterior and around the incision. Took another x-ray. It had not migrated. Copiously irrigated with over 1 L of gentamicin-infused saline. Closed the galea wit h 2-0 Vicryl pop-offs. Closed the skin with 3-0 running nylon. The incision was dressed with Xerofo rm and Telfa, stapled down. We then removed the frame and placed a head wrap. Patient tolerated pro cedure well. Had good lesional effect. There were no complications. FLUIDS: 1100 mL crystalloid. URINE OUTPUT: 175 mL. DRAINS: None. COMPLICATIONS: None. /[id number]/MODL
[2017-10-02] MEDS ORDERED: hydrALAZINE 20 MG/ML VIAL ONE (12:04)
[2017-10-02] MEDS: hydrALAZINE 20 MG/ML VIAL IVP PRN ×2 (12:06→13:19)
--- NOTE | 2017-10-02 12:52 | GPN ---
[f rep st] PROCEDURE NOTE DATE OF PROCEDURE: 10/02/2017 PREPROCEDURE DIAGNOSIS: Essential tremor. POSTPROCEDURE DIAGNOSIS: Essential tremor. PROCEDURE PERFORMED: Intraoperative functional subcortical mapping by microelectrode recording and s timulation. COMPLICATIONS: None. INDICATIONS FOR PROCEDURE: Determination of optimal electrode lead placement for deep brain stimulat ion therapy for essential tremor to the VIM. DESCRIPTION OF PROCEDURE: Following the incision on the right, a burhole was drilled. The arc was t hen arranged with the following coordinates: X is 86, Y is 92, Z is 118, ring is 74, arc is 67.9. T he recording microelectrode was then slowly advanced into the brain using an anterior and central tra ct. Cell burst was noted in the anterior tract at 12.1 above target. There was evidence of entering VIM at 9.7 above target. There was possibly change in recording with foot range of motion at 9.48 a taurus target. There was evidence of a tremor cell at 9.4 above target, and change in recordings with elbow extension at 8.47 above target. There was evidence of deep touch to the upper arm at 2.53 abov e target, and we exited VIM at 1 below target for the anterior tract. For the central tract, we ente red VIM at 7.47 above target, and exited at target. We decided to proceed with macrostimulation at 4 above target at the anterior tract. Patient had transient tongue and hand tingling up to 2.5. With these recordings, we then proceeded with test stimulation. Pulse was 90, rate 130. At 1 negative, 2 positive, impedance 1344, patient had transient tingling left hand at 0.5, constant at 1.5. At 2 n egative, 3 positive, impedance 1743, patient had tingling in her lip and left hand that was transient starting at 1.25 and constant 2.year-old. At 3 negative, 4 positive, impedance 1992, the patient davila d no side effects up to 2.00. When testing these contacts, the bottom of the lead was at 1 below tar get. We then decided to back the lead up, with the bottom of the lead at target, and retest contacts 3 and 4. At 3 negative, 4 positive, impedance 2143, patient had no side effects up to 2.00 current. At 4 negative, 3 positive, impedance 2143, patient had no side effects up to 2.00 current. The pat iefrancisco did not have a significant amount of tremor in order for us to test, as she had a leavening effe ct. We elected to leave the lead at this location with the bottom of the lead at target, using the a nterior tract due to the recordings we obtained, as well as the test stimulation. The patient tolera luba the surgery well without any complication, was transferred to recovery. /[id number]/MODL
[2017-10-02] MEDS ORDERED: LABETALOL HCL 5 MG/ML 20 ML MDV IVP ONE (14:48)
[2017-10-02] MEDS: niCARdipine/NACL 200 ML IV SCH (17:03)
[2017-10-02] MEDS ORDERED: D50W 25 GM/50 ML SYR IVP PRN (18:25)
[2017-10-02] MEDS: CARVEDILOL 6.25 MG TAB PO SCH (18:37)
[2017-10-02] MEDS ORDERED: INSULIN REGULAR HUMAN 100 UNIT/ML UNIT ONE (18:42)
[2017-10-02] MEDS: INSULIN REGULAR, HUMAN 100 UNIT/1 ML VIAL HIGH SC SCH ×2 (18:45→20:51)
[2017-10-02] MEDS: traMADol 50 MG TAB PO PRN (20:26)
[2017-10-02] MEDS: traZODone 100 MG TAB PO SCH (20:27)
[2017-10-02] MEDS: ATORVASTATIN CALCIUM 20 MG TAB PO SCH (20:27)
[2017-10-02] MEDS: risperiDONE 1 MG TAB PO SCH (20:27)
[2017-10-02] MEDS: INSULIN GLARGINE 100 UNITS/ML UNIT SC SCH (21:18)
[2017-10-03] MEDS: traMADol 50 MG TAB PO PRN ×2 (01:03→05:27)
[2017-10-03] MEDS ORDERED: NON-FORMULARY NEW DRUG (Metformin Hcl [Glucophage 1000 Mg] 1,000 MG) PO SCH (08:00)
[2017-10-03] MEDS: INSULIN REGULAR, HUMAN 100 UNIT/1 ML VIAL HIGH SC SCH ×4 (08:18→20:11)
[2017-10-03] MEDS: FLUoxetine 20 MG CAP PO SCH (08:19)
[2017-10-03] MEDS: niCARdipine/NACL 200 ML IV SCH ×2 (08:19→18:18)
[2017-10-03] MEDS: ALLOPURINOL 300 MG TAB PO SCH (08:19)
[2017-10-03] MEDS: lamoTRIgine 100 MG TAB PO SCH (08:19)
[2017-10-03] MEDS: CARVEDILOL 6.25 MG TAB PO SCH ×2 (08:19→18:18)
[2017-10-03] MEDS: metFORMIN HCL 500 MG TAB PO SCH ×2 (08:36→18:18)
[2017-10-03] MEDS: INSULIN GLARGINE 100 UNITS/ML UNIT SC SCH ×2 (08:36→20:11)
[2017-10-03] MEDS: PIOGLITAZONE HCL 15 MG TAB PO SCH (09:24)
[2017-10-03] MEDS: PRIMIDONE 250 MG TAB PO SCH (09:24)
[2017-10-03] MEDS: LISINOPRIL 20 MG TAB PO SCH (10:56)
--- NOTE | 2017-10-03 15:27 | GCON ---
[f rep st] CONSULTATION CRITICAL CARE CONSULTATION DATE OF CONSULTATION: 10/03/2017 REASON FOR CONSULTATION: Postoperative hypertension. HISTORY: The patient is a very pleasant 57-year-old who underwent placement of a deep brain stimulat or on the right side for essential tremor. The procedure was uncomplicated. Today, she is doing wel l. She has some headache. Her blood pressure has been high, and she has been on a nicardipine drip. This is being weaned down, however. She does remain on this drip. She does have a history of unde rlying hypertension, and is on low-dose carvedilol. She has no other complaints. She is looking for valdez to going home as soon as possible. She feels her tremor is better following the deep brain stim ulator, but feels it is too early to tell. PAST MEDICAL HISTORY: Remarkable for hypertension, diabetes, by history of meningioma and pseudotumo r cerebri, bipolar disease, gout and arthritis. PAST SURGICAL HISTORY: Hysterectomy, lumbar peritoneal shunt x2, gastric bypass surgery, and surgery for a femur fracture. SOCIAL HISTORY: The patient lives alone. Alcohol and tobacco are negative. She has a sister who li ves nearby. FAMILY HISTORY: Negative, noncontributory. REVIEW OF SYSTEMS: A 10-point review of systems is negative except as outlined above. PHYSICAL EXAMINATION: GENERAL: An overweight woman who is awake, alert, and appropriately responsiv e. VITAL SIGNS: Blood pressure on nicardipine drip currently is 129/66. Heart rate is 86 with sinu s rhythm on the monitor. She is on 2 L of oxygen with saturations at 92%. Respiratory rate is 18. She is afebrile. HEENT: Unremarkable for lymphadenopathy or thyromegaly. The incision on the right side is without erythema or any drainage. Pupils appear equal. There is no jugular venous distenti on or lymphadenopathy, no thyromegaly. CHEST: Clear anteriorly. Breath sounds are diminished at th e bases secondary to body habitus. HEART: Regular rate and rhythm without significant murmur or gal lop. Heart tones are diminished. ABDOMEN: Obese, soft and nontender. Bowel sounds are present. E XTREMITIES: Without significant edema. NEUROLOGIC: Nonfocal, intact. LABORATORY DATA: White blood cell count on admission was 7,300. Hematocrit 38. Platelets were 226, 000. Basic metabolic panel was normal. Glucoses today have ranged from approximately 100-250. She is on sliding scale insulin, as well as Lantus. ASSESSMENT: 1. Hypertension. She is on a Cardene drip. I have added lisinopril to her regimen, 20 mg orally. Carvedilol can be increased if needed. For now, I will keep her on her outpatient dosage of 6.25 mg twice daily. 2. Status post placement of a deep brain stimulator on the right for essential tremor. She is doing well, no issues identified. 3. History of diabetes, on sliding scale insulin. 4. History of other medical problems as outlined above. Outpatient medications are being continued. 5. History of obstructive sleep apnea. She uses BiPAP and oxygen at home. Her BiPAP machine is not here, and she has not had any problems. If she stays tonight, I do not believe we need to have it. She can sleep partially upright with oxygen. PLAN: The patient will be kept in the Intensive Care Unit on step-down status. Nicardipine will be weaned as blood pressure tolerates to keep the systolic less than 140. Current medications will be c ontinued. If blood pressure is adequately controlled without nicardipine, I anticipate that she will be able to be discharged to home tomorrow with neurosurgical followup. /[id number]/MODL
--- NOTE | 2017-10-03 17:32 | ASMTCMCOM ---
CM Note CM Note Notes: Pt s/p her 2nd surgery for essential tremor. She has a hx of Bipolar d/o, asthma, DM2. PT eval pending. CM will follow for any d/c needs. Date Signed: 10/03/2017 05:31 PM Electronically Signed By:SHREYA Perez
[2017-10-03] MEDS: traZODone 100 MG TAB PO SCH (20:10)
[2017-10-03] MEDS: ATORVASTATIN CALCIUM 20 MG TAB PO SCH (20:10)
[2017-10-03] MEDS: risperiDONE 1 MG TAB PO SCH (20:11)
[2017-10-04 07:33] VITALS: TEMP 98.1
[2017-10-04] MEDS: INSULIN REGULAR, HUMAN 100 UNIT/1 ML VIAL HIGH SC SCH ×2 (07:47→12:24)
[2017-10-04] MEDS: CARVEDILOL 6.25 MG TAB PO SCH (07:50)
[2017-10-04] MEDS: metFORMIN HCL 500 MG TAB PO SCH (07:50)
[2017-10-04] MEDS: INSULIN GLARGINE 100 UNITS/ML UNIT SC SCH (08:32)
[2017-10-04] MEDS: ALLOPURINOL 300 MG TAB PO SCH (08:33)
[2017-10-04] MEDS: LISINOPRIL 20 MG TAB PO SCH (08:33)
[2017-10-04] MEDS: PRIMIDONE 250 MG TAB PO SCH (08:33)
[2017-10-04] MEDS: lamoTRIgine 100 MG TAB PO SCH (08:33)
[2017-10-04] MEDS: PIOGLITAZONE HCL 15 MG TAB PO SCH (08:33)
[2017-10-04] MEDS: FLUoxetine 20 MG CAP PO SCH (08:33)
[2017-10-04 08:34] VITALS: BP 137/99
[2017-10-04 08:37] VITALS: RESP 20
--- NOTE | 2017-10-04 09:25 | SOAPPROG ---
SOAP Progress Note Assessment/Plan: Assessment: 57 yo F POD #2 DBS lead placement Plan: stable and doing well overall HTN improved on po meds still needs home oxygen dc home today please call with neuro changes 10/04/17 09:24 Subjective: no headaches, no N/V. Objective: Vital Signs Temp Pulse Resp BP Pulse Ox 36.7 C 81 20 137/99 H 96 10/04/17 07:00 10/04/17 08:00 10/04/17 08:00 10/04/17 08:33 10/04/17 08:00 Laboratory Results 10/02/17 06:35 10/02/17 06:35 10/03/17 10/04/17 10/05/17 05:59 05:59 05:59 Intake Total 2930 2256 Output Total 225 1 Balance 2705 2255 AAOx4, +FC PERRL, EOMI, no facial droop 5/5 + light touch C/D/I ICD10 Worksheet Patient Problems: Problems Problem Status Onset Essential tremor Acute
--- NOTE | 2017-10-04 09:26 | PDHOMEO2F ---
Home Oxygen Face to Face Home Orders: I certify that a physician or a nurse practitioner or physician's hearing aid assistant has had a ybnw-mg-hpcy encounter with this patient on the date of this order due to the diagnosis listed, which relates to the primary reason the patient requires home oxygen. Alternative treatments have been tried, or considered, and deemed ineffective. It is anticipated that supplemental oxygen will result in improvement with treatment. Home oxygen qualifying diagnosis: post op hypoxia SpO2 on room air (%): 85% Frequency of home oxygen needed: continuous Home oxygen liters per minute: 2 Home oxygen delivery device: nasal cannula Concentrator: Yes E-tanks for mobility and back up: Yes If ordering portable O2, is the patient mobile in the home?: Yes I certify that, based on these findings, the home oxygen is medically necessary for this patient for the following length of time. Length of time home oxygen needed: 3 months
[2017-10-04 13:34] VITALS: PULSE 71; O2SAT 95
== END 2017-10-04 14:41 | disposition home or self-care (01) | DRG 26 ==
LOC: F3N 05:32 → F2N 16:47
PROVIDERS: ADMIT Neurological Surgery; ATTEND Neurological Surgery
DX: G25.0 Essential tremor (principal); I10 Essential (primary) hypertension; E11.9 Type 2 diabetes mellitus without complications; G47.33 Obstructive sleep apnea (adult) (pediatric); M10.9 Gout, unspecified; F31.9 Bipolar disorder, unspecified; E66.3 Overweight; Z68.43 Body mass index [BMI] 50.0-59.9, adult; Z99.81 Dependence on supplemental oxygen; Z79.4 Long term (current) use of insulin; Z86.018 Personal history of other benign neoplasm; Z98.84 Bariatric surgery status
CPT/HCPCS: 97110-GP; 97161-GP; C1713; C1778; J0171; J0360; J0697; J1100; J1580; J1815; J2405; J2704; J3010

== ENCOUNTER 2017-11-04 09:29 | Day surgery (SDC) | payer OTHER, MEDICAID ==
[2017-11-04] MEDS ORDERED: ceFAZolin 2 GM/SWFI 2 GM/20 ML SYR IVP ONE (09:40)
[2017-11-04] MEDS ORDERED: LIDOCAINE 1% 2 ML INJ ID PRN (09:41)
[2017-11-04] MEDS ORDERED: LR 1,000 ML IV ONE (09:41)
[2017-11-04] MEDS ORDERED: GENTAMICIN SULFATE 80 MG/2 ML VIAL ONE ×2 (10:02→11:40)
[2017-11-04] MEDS ORDERED: CHLORHEXIDINE GLUC HIBICLENS 118 ML BTL TP ONE (10:02)
[2017-11-04] MEDS ORDERED: BUPIVACAINE 0.25% 30 ML SDV ONE ×2 (10:02→11:39)
[2017-11-04] MEDS ORDERED: MIDAZOLAM 2 MG/2 ML VIAL IVP ONE (11:52)
--- NOTE | 2017-11-04 11:52 | PDANEPAE ---
ANE History of Present Illness dbs stage 2 ANE Past Medical History - Cardiovascular History Hx Hypertension: Yes Hx Arrhythmias: Yes Hx Chest Pain: No Hx Coronary Artery / Peripheral Vascular Disease: No Hx CHF / Valvular Disease: No Hx Palpitations: No Cardiovascular History Comment: PVC's. RBBB. high chol - Pulmonary History Hx COPD: No Hx Asthma/Reactive Airway Disease: Yes Hx Recent Upper Respiratory Infection: Yes Hx Oxygen in Use at Home: Yes Hx Sleep Apnea: Yes Sleep Apnea Screening Result - Last Documented: Positive Pulmonary History Comment: 2L TO CPAP AT NIGHT. SLEEP APNEA W/CPAP - Neurologic History Hx Cerebrovascular Accident: No Hx Seizures: No Hx Dementia: No Neurologic History Comment: essential tremor - Endocrine History Hx Diabetes: Yes Endocrine History Comment: type 2. hyperparathyroid - Renal History Hx Renal Disorders: No - Liver History Hx Hepatic Disorders: No - Neurological & Psychiatric Hx Hx Neurological and Psychiatric Disorders: No Neurological / Psychiatric History Comment: ANXIETY. DEPRESSION. Bipolar - Cancer History Hx Cancer: No - Congenital Disorder History Hx Congenital Disorders: No - GI History Hx Gastrointestinal Disorders: Yes Gastrointestinal History Comment: GASTRIC BYPASS - Other Health History Other Health History: wears glasses. ECZEMA R FOOT/TOE. HEAT RASH GROIN, FOLDS UNDER BREASTS RECURRENT. BILAT. MISSING TEETH UPPER. GOUT - Chronic Pain History Chronic Pain: Yes (BACK PAIN) - Surgical History Prior Surgeries: 10/02/17 DBS stg 2 with Vogt. 09/04/17 DBS stg 1 with Vogt. 08/28/17 MRI with anesthesia eye surg r. gastric bypass 2012. meningioma resection. hysterectomy. lumbar perineal shunt. femur repair ANE Review of Systems Review of systems is: negative Review of Systems: - Exercise capacity Exercise capacity: <4 METS, limited by disability METS (RN): 3 METS ANE Patient History - Allergies Allergies/Adverse Reactions: codeine Allergy (Verified 10/02/17 06:20) Rash hydrocodone Allergy (Verified 10/02/17 06:20) Rash - Home Medications Home Medications: Allopurinol [Allopurinol 300 MG (RX)] DAILY 04/28/17 [Last Taken 11/04/17 04:00] Atorvastatin Calcium [Lipitor 20 mg (*)] HS 04/28/17 [Last Taken 11/03/17] Carvedilol [Coreg (*)] BIDMEAL 04/28/17 [Last Taken 11/04/17 04:00] FLUoxetine [Prozac 20 MG (*)] DAILY 04/28/17 [Last Taken 11/04/17 04:00] Insulin Glargine [Lantus 100 UNITS/ML (*)] 52 unit SC BID 04/28/17 [Last Taken 11/03/17] Multivitamins [Multivitamin (*)] DAILY 04/28/17 [Last Taken 10/27/17] lamoTRIgine [LamICTAL 100 MG (*)] DAILY 04/28/17 [Last Taken 11/04/17 04:00] metFORMIN HCL [Glucophage 1000 mg] BIDMEAL 04/28/17 [Last Taken 11/03/17] risperiDONE [Risperdal 1mg (*)] HS 04/28/17 [Last Taken 11/03/17] Cholecalciferol Vit D3 [Vitamin D3 2000 units tab (OTC)] DAILY 08/20/17 [Last Taken 10/27/17] Herbals/Supplements -Info Only DAILY 08/20/17 [Last Taken 10/27/17] Pioglitazone HCl [Actos 15mg (*)] DAILY 08/20/17 [Last Taken 11/03/17] Primidone [Primidone 250mg (*)] DAILY 08/20/17 [Last Taken 11/04/17 04:00] traZODone [traZODONE 100MG (*)] 200 mg PO HS 10/01/17 [Last Taken 11/03/17] - NPO status NPO Status: no food or drink >8 hours NPO Since - Liquids (Date): 11/04/17 NPO Since - Liquids (Time): 04:00 NPO Since - Solids (Date): 11/03/17 NPO Since - Solids (Time): 19:00 - Anes Hx Anes Hx: no prior problems - Smoking Hx Smoking Status: Former smoker - Alcohol Use Alcohol Use: None - Family Anes Hx Family Anes Hx: none Family Hx Anesthesia Complications: none ANE Labs/Vital Signs - Vital Signs Blood Pressure: 153/89 Heart Rate: 77 Respiratory Rate: 14 O2 Sat (%): 90 Height: 157.48 cm Weight: 127.006 kg ANE Physical Exam - Airway Neck exam: FROM Mallampati Score: Class 2 Mouth exam: poor dentition - Pulmonary Pulmonary: no respiratory distress - Cardiovascular Cardiovascular: regular rate and rhythym - ASA Status ASA Status: III ANE Anesthesia Plan Anesthesia Plan: general endotracheal anesthesia
[2017-11-04] MEDS ORDERED: PROPOFOL 200 MG/20 ML VIAL ONE (11:56)
[2017-11-04] MEDS ORDERED: SUGAMMADEX SODIUM 200 MG/2 ML VIAL IVP ONE (11:56)
[2017-11-04] MEDS ORDERED: fentaNYL 100 MCG/2 ML INJ ONE ×3 (11:56→14:08)
[2017-11-04] MEDS ORDERED: DEXAMETHASONE 4 MG/ML VIAL ONE (11:56)
[2017-11-04] MEDS ORDERED: LIDOCAINE 2% 5 ML SDV ONE (11:56)
[2017-11-04] MEDS ORDERED: ONDANSETRON 4 MG/2 ML VIAL ONE (11:56)
[2017-11-04] MEDS ORDERED: ROCURONIUM 50 MG/5 ML VIAL ONE ×2 (11:56→12:33)
[2017-11-04] MEDS ORDERED: ONDANSETRON DISINTEGRATING 4 MG TAB PO PRN (13:44)
[2017-11-04] MEDS ORDERED: traMADol 50 MG TAB PO PRN (13:45)
[2017-11-04] MEDS ORDERED: LABETALOL HCL 5 MG/ML 20 ML MDV IVP PRN (14:01)
[2017-11-04] MEDS ORDERED: ONDANSETRON 4 MG/2 ML VIAL IVP PRN (14:01)
[2017-11-04] MEDS ORDERED: ALBUTEROL 3 ML DEYVIAL IH PRN (14:01)
[2017-11-04] MEDS ORDERED: ACETAMINOPHEN 500 MG TAB PO PRN (14:01)
[2017-11-04] MEDS ORDERED: HYDROmorphONE/DILAUDID 1 MG/ML INJ IVP PRN (14:01)
[2017-11-04] MEDS ORDERED: oxyCODONE IR 5 MG TAB PO PRN (14:01)
[2017-11-04] MEDS ORDERED: NALOXONE HCL 0.4 MG/ML INJ IVP PRN ×2 (14:01)
--- NOTE | 2017-11-04 14:02 | POSTOPPROG ---
Post Op Note Date of Operation: 11/04/17 Surgeon: Elli Vogt Stitcher Operator: Francisca Palacios PA-C Anesthesiologist: Dr. Goldman Anesthesia: GET(General Endotracheal) Pre-op Diagnosis: Essential tremor Post-op Diagnosis: Essential tremor Procedure: bilateral DBS interal pulse generator Inf/Abcess present in the surg proc area at time of surgery?: No Depth: Superfical (Skin SQ) EBL: 50-100 Plan Plan: 57 yo female s/p bilateral internal pulse generator DBS - neuro checks - pain control - advance diet as tolerated - dc home today Exam Patient seen in recovery. Awake, Alert Speech fluent Following commands TRUE
--- NOTE | 2017-11-04 14:03 | POSTANESTH ---
Post Anesthetic Evaluation Cardiovascular Status: Normal, Stable Respiratory Status: Normal, Stable Level of Consciousness/Mental Status: Can Participate in Eval, Mildly Sleepy, Arousable Pain Control: Adequate, Prn Tx Ordered Nausea/Vomiting Control: Adequate, Prn Tx Ordered Complications Possibly Related to Anesthesia: None Noted
[2017-11-04] MEDS ORDERED: HYDROmorphONE/DILAUDID 2 MG/ML INJ ONE (14:07)
[2017-11-04] MEDS: fentaNYL 100 MCG/2 ML INJ IVP PRN ×2 (14:09→14:20)
--- NOTE | 2017-11-04 14:13 | GOP ---
[f rep st] OPERATIVE REPORT DATE OF OPERATION: 11/04/2017 SURGEON: Elli Vogt DO NEUROSURGEON: Elli Vogt DO. CHART CALCULATOR: Francisca Palacios PA-C. PREOPERATIVE DIAGNOSIS: Essential tremor. POSTOPERATIVE DIAGNOSIS: Essential tremor. PROCEDURE PERFORMED: 1. Bilateral deep brain stimulator generator placement with Castro [facility] [facility] Infinity generator with connection to indwelling leads. 2. Impedances x2. FINDINGS: SPECIMENS: None. ESTIMATED BLOOD LOSS: 50 mL. INDICATIONS: This is a 57-year-old female with bilateral essential tremors, who has had deep brain s timulator lead placement and returns today for bilateral generator placement. She was identified, co nsented, sites were marked. DESCRIPTION OF PROCEDURE: Brought to the operating room, anesthetized under general endotracheal tub e anesthesia. Hair was clipped with the OR clippers, incision sites were marked. She was prepped an d draped in the usual sterile fashion on the left side. Incision at the chest wall was anesthetized with 0.5% Marcaine with epinephrine. Incision was made j ust lateral to lead extension complex with a 10 blade and the complex was dissected out. An incision was made at the chest wall with a 10 blade and a subcutaneous pocket was created with blunt dissecti on. Meticulous hemostasis was obtained with bipolar cautery, then a tunnel, then a single pass under the skin over the clavicle, bringing the lead extension through and removing the straw, using the to rque wrench to remove extension cap, gently dried the lead, placed it into the lead extension, placed the lead extension into the generator, checked impedances. All impedances were good. Locked them d own with the torque wrench. Brought the lead extension complex flat against the skull, coiled the re mainder of the extension wire posterior to the generator, sutured it to the chest wall with 2-0 silk stitch at 2 positions, copiously irrigated each incision with over a liter each of gentamicin-infused saline. Closed the galea with 2-0 Vicryl pop-offs, the skin with 3-0 running nylon at the chest. T he fascia was closed with 2-0 Vicryl pop-offs, subcutaneous layer with 3-0 Vicryl pop-offs. The skin was closed with 4-0 running Monocryl and Dermabond. Head was dressed with Xeroform and a Ray-Bud, a nd the patient was undraped and her head was turned. The incision sites were marked on the other alyssa e. She was re-prepped and draped. Incision was anesthetized with 0.5% Marcaine with epinephrine at the chest wall. Incision was made at the chest wall with a 10 blade and a subcutaneous pocket was create d and meticulous hemostasis was obtained with bipolar cautery. Incision was made lateral to lead ext ension complex with a 10 blade, and this was dissected out. We then tunneled in a single pass under the skin over the clavicle, bringing the extension wire down and through, discarding the straw, used the torque wrench to remove the cap, gently dried the lead, placed it into the extension, place the l ead into the generator, checked all impedances. All impedances were good. Locked into place with th e torque wrench. Rechecked impedances. All impedances were good. Brought the lead extension comple x flat against the skull, coiled the lead extension posterior to the generator, tied it to the chest wall with 2-0 silk stitch at 2 positions, copiously irrigated both incisions with over a liter of gen tamicin-infused saline. Closed the subcutaneous layer with 2-0 Vicryl pop-offs at each incision, cut aneous layer with 3-0 Vicryl pop-offs. The skin was closed with 3-0 running nylon at the skull, and 4-0 running Monocryl subcuticular stitch and Dermabond at the chest. Both wounds were redressed with Xeroform, gauze, and Medipore tape. Patient tolerated procedure well. All impedances were good. FLUIDS: 300 mL of crystalloid. URINE OUTPUT: None. DRAINS: None. COMPLICATIONS: None. /[id number]/MODL
[2017-11-04] MEDS ORDERED: oxyCODONE IR 5 MG TAB ONE (14:27)
[2017-11-04 15:12] VITALS: PULSE 86; RESP 17; TEMP 97.9
[2017-11-04 15:55] VITALS: BP 148/79; O2SAT 87
== END 2017-11-04 15:45 | disposition home or self-care (01) ==
LOC: FSGY 09:29 → EDSTATUS 09:30 → FSGY 15:45
PROVIDERS: ATTEND Neurological Surgery
PROC: 0JH60DZ Insertion of Multiple Array Stimulator Generator into Chest Subcutaneous Tissue and Fascia, Open Approach (ICD-10-PCS; principal; 2017-11-04 11:45)
DX: G25.0 Essential tremor (principal)
CPT/HCPCS: C1767; C1787; C1883; J0171; J0690; J1100; J1170; J1580; J2250; J2405; J2704; J3010